=== PATIENT | female | born 1955 | race Caucasian/White ===

== ENCOUNTER 2018-01-13 07:36 | Day surgery (SDC) | payer BC ==
[~2018-01-13 07:36] MED LIST: CIPROFLOXACIN 400 MG in D5W 200 ML IVPB; DEXAMETHASONE 4 MG/ML 1 ML INJ; LIDOCAINE 2% (SDV) 5 ML INJ
[2018-01-13] MEDS ORDERED: LACTATED RINGER'S 1,000 ML IV (09:00)
[2018-01-13] MEDS ORDERED: INDIGOTINDISULFONATE 0.8% 5 ML INJ IV (10:00)
[2018-01-13] MEDS ORDERED: ALBUTEROL 0.083% (NEB) 2.5 MG/3 ML AMP HHN (11:30)
[2018-01-13] MEDS ORDERED: FENTAnyl 50 MCG/ML VIAL IV ×3 (11:30)
[2018-01-13] MEDS ORDERED: HYDROmorphONE 1 MG/5 ML IV SYRINGE IV ×3 (11:30)
[2018-01-13] MEDS ORDERED: OXYCODONE/ACETAMINOPHEN (5/325) TAB PO ×2 (11:30)
[2018-01-13] MEDS ORDERED: hydrALAzine 20 MG INJ IV (11:30)
[2018-01-13] MEDS ORDERED: METOCLOPRAMIDE 10 MG INJ IV (11:30)
[2018-01-13] MEDS ORDERED: LABETALOL HCL 20MG INJ IV (11:30)
[2018-01-13] MEDS ORDERED: KETOROLAC 30 MG INJ IV (11:30)
[2018-01-13] MEDS ORDERED: ONDANSETRON 4 MG INJ IV (11:30)
[2018-01-13] MEDS ORDERED: MIDAZOLAM 1 MG/ML 2 ML INJ IV (11:30)
[2018-01-13] MEDS ORDERED: MEPERIDINE 25 MG INJ IV (11:30)
[2018-01-13] MEDS ORDERED: DIPHENHYDRAMINE 50 MG INJ IV (11:30)
[2018-01-13] MEDS ORDERED: EPHEDrine SULFATE 50 MG/5 ML SYG IV (11:30)
[2018-01-13] MEDS ORDERED: PROPOFOL 100 ML (11:56)
[2018-01-13] MEDS ORDERED: ROCURONIUM 50 MG INJ (11:56)
[2018-01-13] MEDS ORDERED: FENTAnyl 50 MCG/ML VIAL (12:00)
[2018-01-13] MEDS ORDERED: DEXAMETHASONE 4 MG/ML 1 ML INJ (12:02)
[2018-01-13] MEDS ORDERED: ACETAMINOPHEN 1000MG/100ML IV 100 ML (12:02)
[2018-01-13] MEDS ORDERED: ONDANSETRON 4 MG INJ (12:02)
[2018-01-13] MEDS: BUPIVACAINE 0.5%/EPI (SDV) 30 ML INJ (12:31)
[2018-01-13] MEDS ORDERED: FUROSEMIDE 20 MG INJ (13:06)
[2018-01-13] MEDS ORDERED: SUGAMMADEX SODIUM 200 MG/2 ML VIAL IV (13:29)
== END 2018-01-13 15:50 | disposition home or self-care (01) ==
LOC: SDS 07:36
DX: N81.11 Cystocele, midline (principal); N95.2 Postmenopausal atrophic vaginitis
CPT/HCPCS: 57240; 88305